=== PATIENT | male | born 1995 | race Caucasian/White ===

== ENCOUNTER 2022-07-10 23:35 | Emergency (ER) | payer BC ==
[2022-07-11] MEDS ORDERED: Acetaminophen 500 MG TAB ONE (04:05)
[2022-07-11] MEDS ORDERED: Ketorolac Tromethamine 30 MG/ML VIAL ONE (04:05)
== END 2022-07-11 04:45 | disposition home or self-care (01) ==
LOC: ERS 23:35
DX: M51.17 Intervertebral disc disorders with radiculopathy, lumbosacral region (principal); F17.220 Nicotine dependence, chewing tobacco, uncomplicated
CPT/HCPCS: 96372; 99283; J1885

== ENCOUNTER 2022-11-29 06:12 | Emergency (ER) | payer SELFPAY ==
[2022-11-29] MEDS ORDERED: Ketorolac Tromethamine 30 MG/ML VIAL ONE (06:26)
== END 2022-11-29 09:00 | disposition home or self-care (01) ==
LOC: ERS 06:12
DX: M25.561 Pain in right knee (principal); F17.220 Nicotine dependence, chewing tobacco, uncomplicated
CPT/HCPCS: 96372; J1885